=== PATIENT | male | born 1990 | race Caucasian/White ===

== ENCOUNTER 2022-05-12 21:00 | Emergency (ER) | payer OTHER, SELFPAY ==
[2022-05-12 21:23] VITALS: BMI 28.7
[2022-05-12 21:28] VITALS: BP 129/79; PULSE 73; RESP 17; TEMP 36.8; O2SAT 99
--- NOTE | 2022-05-12 21:52 | XRR_ITS ---
PROCEDURE INFORMATION: Exam: XR Right Shoulder Exam date and time: 05/12/2022 10:10 PM Age: 31 years old Clinical indication: Pain; Shoulder; Right; Additional info: R shoulder pain TECHNIQUE: Imaging protocol: Radiologic exam of the Right shoulder. Views: 2 or more views. COMPARISON: No relevant prior studies available. FINDINGS: Bones/joints: Normal. Soft tissues: Normal. XR/XR shoulder RT min 2V* [id number] IMPRESSION: No acute findings.
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
[2022-05-12 22:36] VITALS: RESP 18
[2022-05-12] MEDS: HYDROmorphone 1 mg/mL INJ 1 mL 2 MG IM (22:36)
[2022-05-12] MEDS: ondansetron 4 MG Tablet PO (22:36)
[2022-05-13 01:43] VITALS: RESP 18
[2022-05-13] MEDS: oxyCODONE-APAP 5-325 mg Tablet 2 TAB PO (01:43)
[2022-05-13 01:45] VITALS: BP 131/69; PULSE 74; RESP 18; TEMP 36.7; O2SAT 99
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
== END 2022-05-13 01:48 | disposition home or self-care (01) ==
PROVIDERS: Emergency Provider Emergency Medicine
DX: S42.021A Displaced fracture of shaft of right clavicle, initial encounter for closed fracture (principal); V86.59XA Driver of other special all-terrain or other off-road motor vehicle injured in nontraffic accident, initial encounter
CPT/HCPCS: 70450; 72125; 73000; 73030; 96372; 99283; J1170; Q0162